=== PATIENT | female | born 1990 | race Caucasian/White ===

== ENCOUNTER 2021-06-26 16:21 | Emergency (ER) | payer OTHER ==
[2021-06-26 16:48] VITALS: TEMP 99.8
[2021-06-26] MEDS ORDERED: LORazepam 2 MG/ML INJ IV STA (17:31)
[2021-06-26] MEDS ORDERED: SODIUM CHLORIDE 0.9% 1,000 ML IV STA (17:31)
[2021-06-26] MEDS ORDERED: KETOROLAC 15 MG/ML 1 ML VIAL IVP STA (17:31)
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
[2021-06-26 18:31] LABS: Basophils % (A) 0 %; Eosinophils % (A) 0 %; HCT 41.5 % (34.0-46.0); Lymphocytes # (A) 1.5 k/uL (1.0-4.8); Lymphocytes % (A) 15 %; MCH 30.9 pg (25.0-35.0); MCHC 33.7 g/dL (31.0-37.0); MCV 91.7 fL (80.0-100.0); Mean Platelet Volume 7.6; Monocytes # (A) 0.3 k/uL (0-1.0); Monocytes % (A) 3 %; Neutrophils # (A) 7.7 k/uL (1.3-7.7); Neutrophils % (A) 79 %; Platelet Count 371 k/uL (150-450); RBC 4.53 m/uL (3.80-5.40); RDW 13.6 % (11.5-15.5); WBC 9.7 k/uL (3.8-10.6)
[2021-06-26 18:49] LABS: INR 0.9 (<1.2); Prothrombin Time 10.1 sec (9.0-12.0)
--- NOTE | 2021-06-26 18:50 | XR ---
EXAMINATION TYPE: XR ribs bilat w pa chest xray DATE OF EXAM: 06/26/2021 COMPARISON: NONE HISTORY: Pain. Chest pain. Contusion. TECHNIQUE: 9 views FINDINGS: Heart and mediastinum are normal. Lungs are clear of infiltrate. There is no pleural effusi on or pneumothorax. Trachea is midline. The ribs appear intact. No evidence of rib fracture. IMPRESSION: Normal chest. Normal bilateral rib exam.
[2021-06-26 18:51] LABS: ALT 51 U/L (4-34); AST 45 U/L (14-36); African American GFR (CKD) >90 (>60 ml/min/1.73 sqM); Albumin 3.7 g/dL (3.5-5.0); Alkaline Phosphatase 103 U/L (38-126); Anion Gap 10 mmol/L; Blood Urea Nitrogen 16 mg/dL (7-17); Calcium 9.1 mg/dL (8.4-10.2); Carbon Dioxide 26 mmol/L (22-30); Chloride 104 mmol/L (98-107); Glucose 114 mg/dL (74-99); Non-African American GFR(CKD) >90 (>60 ml/min/1.73 sqM); Potassium 3.7 mmol/L (3.5-5.1); Sodium 140 mmol/L (137-145); Total Bilirubin 0.8 mg/dL (0.2-1.3); Total Protein 7.1 g/dL (6.3-8.2)
--- NOTE | 2021-06-26 18:52 | XR ---
EXAMINATION TYPE: XR hand complete LT DATE OF EXAM: 06/26/2021 COMPARISON: NONE HISTORY: Pain TECHNIQUE: 3 views FINDINGS: 3 views are obtained through the cast that show transverse fractures of the mid shaft of th e second and third metacarpals. This probably also nondisplaced fracture midshaft fourth metacarpal. It is 100% offset of the third metacarpal fracture. Detail limited by the cast. The fingers appear in tact. IMPRESSION: Multiple metacarpal fractures with variable displacement. The main exam.
[2021-06-26 18:53] LABS: Partial Thromboplastin Time 19.3 sec (22.0-30.0)
--- NOTE | 2021-06-26 18:54 | XR ---
EXAMINATION TYPE: XR wrist complete LT DATE OF EXAM: 06/26/2021 COMPARISON: NONE HISTORY: Pain TECHNIQUE: 3 views FINDINGS: 3 views of the cast were obtained that show transverse fractures of mid shaft of the second third and fourth metacarpals. There is variable displacement up to 100% offset. The carpal bones are intact. There is nondisplaced ulnar styloid process fracture. Distal radius appears intact. Detail l imited by the cast. IMPRESSION: Ulnar styloid process fracture. Multiple metacarpal fractures. Limited exam.
[2021-06-26] MEDS ORDERED: BACITRACIN OINT 1 EACH PACKET TOPICAL ONE (21:49)
[2021-06-27] MEDS ORDERED: traMADol 50 MG TAB PO STA (00:30)
[2021-06-27] MEDS ORDERED: ONDANSETRON ODT 4 MG TAB PO STA (00:30)
[2021-06-27 01:15] VITALS: RESP 18
[2021-06-27 02:18] VITALS: BP 131/80; PULSE 85
== END 2021-06-27 02:18 | disposition home or self-care (01) ==
LOC: EC 16:21
DX: S62.102A Fracture of unspecified carpal bone, left wrist, initial encounter for closed fracture (principal); S00.83XA Contusion of other part of head, initial encounter; S00.03XA Contusion of scalp, initial encounter; F17.200 Nicotine dependence, unspecified, uncomplicated; Z88.5 Allergy status to narcotic agent; Z91.018 Allergy to other foods; X58.XXXA Exposure to other specified factors, initial encounter
CPT/HCPCS: 36415; 80053; 83605; 85025; 85610; 85730; 87040; 71111; 73110; 73130; 29125; 99283; 96374; 96375; J2060; J1885